=== PATIENT | male | born 1975 ===

== ENCOUNTER → 2020-11-10 | Outpatient (CLI) | payer BC ==
[~2020-11-10] MED LIST: ALBU90OI INH; ALBU90OI6 INH; ASPI325EC PO; HYDCHL25 PO; IBUP400 PO; LORA1 PO; LORA10ER PO; METO25ER PO; MONT10T PO; RXLORA1 PO
[2020-11-11 11:10] LABS: SARS COV-2 IGG AB Negative (Negative)
== END | disposition home or self-care (01) ==
LOC: LAB SHORT 08:57 → LAB 08:57
PROVIDERS: Physician Assistant
DX: Z20.828 Contact with and (suspected) exposure to other viral communicable diseases (principal)
CPT/HCPCS: 86769

== ENCOUNTER → 2021-12-07 | Outpatient (CLI) | payer BC ==
[2021-12-07 22:20] LABS: Source, Urine Clean Catch
[2021-12-07 22:31] LABS: Appearance, Urine Clear (Clear); Bilirubin, Urine Neg (Neg); Blood, Urine 1+ (Neg); Color, Urine Yellow (P-Yellow); Glucose Qualitative, Urine Neg (Neg); Ketones, Urine Neg (Neg); Leukocyte Esterase, Urine Neg (Neg); Nitrite, Urine Neg (Neg); Protein, Urine Neg (Neg); Urobilinogen, Urine NORM (Normal)
[2021-12-07 22:32] LABS: Bacteria Not Seen /hpf; Mucus Light (0-Heavy); Red Blood Cells, Urine 0-2 /hpf (0-2); Squamous Epithelial Cells Not Seen /hpf (Few); White Blood Cells, Urine 0-2 /hpf (0-5)
== END | disposition home or self-care (01) ==
LOC: LAB 20:19 → LAB SHORT 20:19
PROVIDERS: Physician Assistant
DX: N02.0 Recurrent and persistent hematuria with minor glomerular abnormality (principal)
CPT/HCPCS: 81015

== ENCOUNTER → 2021-12-31 | Outpatient (CLI) | payer BC ==
[2021-12-31 06:01] LABS: Creatinine, Blood 1.34 mg/dL (0.60-1.20); Glomerular Filtration Rate 67 (60-)
== END ==
LOC: LAB SHORT 05:27 → LAB 05:27
PROVIDERS: Internal Medicine Medical Oncology
DX: Z01.812 Encounter for preprocedural laboratory examination (principal); Z12.5 Encounter for screening for malignant neoplasm of prostate
CPT/HCPCS: 36415; 82565; G0103